=== PATIENT | male | born 1975 | race Caucasian/White ===

== ENCOUNTER 2017-11-14 22:04 | Emergency (ER) | payer SELFPAY ==
[2017-11-15] MEDS: ALBUTEROL 0.083% (NEB) 2.5 MG/3 ML AMP NEB (01:02)
[2017-11-15] MEDS: IPRATROPIUM (NEB) 0.5 MG/2.5 ML AMP NEB (01:02)
[2017-11-15] MEDS: IBUPROFEN 800 MG TAB PO (01:04)
== END 2017-11-15 02:40 | disposition home or self-care (01) ==
LOC: FTE 22:04
DX: J18.9 Pneumonia, unspecified organism (principal); R19.7 Diarrhea, unspecified; R05 Cough
CPT/HCPCS: 71045; 94664; 99284-25